=== PATIENT | male | born 1980 | race Caucasian/White ===

== ENCOUNTER 2018-11-14 09:51 | Emergency (ER) | payer OTHER ==
[2018-11-14 09:56] VITALS: PULSE 99; O2SAT 100
[2018-11-14 09:57] VITALS: BMI 22.1
--- NOTE | 2018-11-14 10:29 | ED PDOC ---
HPI: General Adult Time Seen by Provider: 11/14/18 09:57 Chief Complaint (Nursing): Allergic Reaction Chief Complaint (Provider): Allergic Reaction History Per: Patient History/Exam Limitations: no limitations Onset/Duration Of Symptoms: Days (2) Additional Complaint(s): 38 y/o male presents to the ED complaining of a rash that started 2 days ago. Patient states the rash is itchy red spots and its through his whole body. 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 He states he has not taken any medication for it. Patient denies fever, cough, shortness of breath, vomiting, swelling, food exposure, bad products, recent travels, or any sick contacts. PMD: none provided Past Medical History Reviewed: Historical Data, Nursing Documentation, Vital Signs Vital Signs: Last Vital Signs Temp 99.5 F 11/14/18 09:55 Pulse 99 H 11/14/18 09:55 Resp 17 11/14/18 09:55 BP 147/78 11/14/18 09:55 Pulse Ox 100 11/14/18 09:55 - Medical History PMH: No Chronic Diseases - Surgical History Surgical History: No Surg Hx - Family History Family History: States: No Known Family Hx - Immunization History Hx Tetanus Toxoid Vaccination: No Hx Influenza Vaccination: No Hx Pneumococcal Vaccination: No - Home Medications Home Medications: Ambulatory Orders Medication Instructions Recorded Hydroxyzine HCl 10 mg PO TID #15 tablet 11/14/18 Prednisone 50 mg PO DAILY #3 tablet 11/14/18 - Allergies Allergies/Adverse Reactions: Allergies Allergy/AdvReac Type Severity Reaction Status Date / Time No Known Allergies Allergy Unverified 05/20/13 01:05 Review of Systems ROS Statement: Except As Marked, All Systems Reviewed And Found Negative Constitutional: Negative for: Fever, Sweats Respiratory: Negative for: Cough, Shortness of Breath Gastrointestinal: Negative for: Vomiting Skin: Positive for: Rash Physical Exam - Reviewed Nursing Documentation Reviewed: Yes Vital Signs Reviewed: Yes - Physical Exam Appears: Positive for: Well, Non-toxic, No Acute Distress Head Exam: Positive for: ATRAUMATIC, NORMOCEPHALIC Skin: Positive for: Normal Color, Warm, Dry, Rash (Disfused rash on arm, leg, and limited on face. Red macular, confluent, seperated, and slightly rasied. No pass chills, no vesicles. ) Eye Exam: Positive for: EOMI, Normal appearance, PERRL ENT: Positive for: Normal ENT Inspection Neck: Positive for: Normal, Painless ROM, Supple Cardiovascular/Chest: Positive for: Regular Rate, Rhythm. Negative for: Murmur Respiratory: Positive for: Normal Breath Sounds. Negative for: Wheezing Gastrointestinal/Abdominal: Positive for: Normal Exam, Soft. Negative for: Tenderness Back: Positive for: Normal Inspection. Negative for: L CVA Tenderness, R CVA Tenderness Extremity: Positive for: Normal ROM Neurological/Psych: Positive for: Awake, Alert, Normal Tone, Oriented (x3). Negative for: Motor/Sensory Deficits - Laboratory Results Result Diagrams: 11/14/18 10:24 - ECG O2 Sat by Pulse Oximetry: 100 - Progress Re-evaluation Time: 11:50 Condition: Re-examined, Improved Medical Decision Making Medical Decision Making: Time:1018 Initial Impression: Rash. Diff include urticaria. Rule out syphilis, Bacterial skin infection, and HIV test. Initial Plan: -CBC -ESR -Benadryl 50mg PO -Pepcid 20mg PO -Prednisone 60mg PO -HIV rapid -RPR Reassess Scribe Attestation: Documented by Ame Eubanks, acting as a scribe for Jennifer Lane Provider Scribe Attestation: All medical record entries made by the Scribe were at my direction and personally dictated by me. I have reviewed the chart and agree that the record accurately reflects my personal performance of the history, physical exam, medical decision making, and the department course for this patient. I have also personally directed, reviewed, and agree with the discharge instructions and disposition. Disposition - Clinical Impression Clinical Impression: Allergic reaction - Patient ED Disposition Is Patient to be Admitted: No Doctor Will See Patient In The: Office Counseled Patient/Family Regarding: Studies Performed, Diagnosis, Need For Followup - Disposition Referrals: [facility] [Outside] Disposition: Routine/Home Disposition Time: 11:53 Condition: GOOD Additional Instructions: LEV LOWERY, thank you for letting us take care of you today. Your provider was Jennifer Lane MD and you were treated for BODY RASH, WEAKNESS. The emergency medical care you received today was directed at your acute symptoms. If you were prescribed any medication, please fill it and take a s directed. It may take several days for your symptoms to resolve. Return to the Emergency Department if your symptoms worsen, do not improve, or if you have any other problems. Please contact your doctor or call one of the physicians/clinics you have been referred to that are listed on the Patient Visit Information form that is included in your discharge packet. Bring any paperwork you were given at discharge with you along with any medications you are taking to your follow up visit. Our treatment cannot replace ongoing medical care by a primary care provider outside of the emergency department. Thank you for allowing the [facility] team to be part of your care today. If you had an X-Ray or CT scan: A Radiologist will review the ED reading if any change in treatment is needed we will contact you. If you had a blood, urine, or wound culture: It will take several days for the results, if any change in treatment is needed we will contact you. Prescriptions: Hydroxyzine HCl 10 mg PO TID #15 tablet Prednisone 50 mg PO DAILY #3 tablet Instructions: Hives Forms: [employer] (Faroese) Print Language: BULGARIAN
[2018-11-14 10:32] LABS: BASO % 0.2 % (0.0-2.0); EOS # 0.1 K/uL (0.0-0.7); EOS % 0.9 % (0.0-4.0); HEMOGLOBIN 12.7 g/dL (12.0-18.0); LYMPH # 0.9 K/uL (1.0-4.3); LYMPH % 11.7 % (20.0-40.0); MEAN CELL VOLUME 100.2 fl (80.0-94.0); MEAN CORPUSCULAR HGB CONC 33.9 g/dL (33.0-37.0); MEAN PLATELET VOLUME 7.5 fl (7.2-11.7); MONO # 0.4 K/uL (0.0-0.8); MONO % 4.9 % (0.0-10.0); NEUT % 82.3 % (50.0-75.0); NRBC % 0.1 % (0.0-0.0); RBC 3.73 Mil/uL (4.40-5.90); RED CELL DISTRIBUTION WIDTH 23.4 % (11.5-14.5); WHITE BLOOD COUNT 7.3 K/uL (4.8-10.8)
[2018-11-14 12:08] VITALS: BP 140/80; RESP 18; TEMP 98.6
== END 2018-11-14 12:06 | disposition home or self-care (01) ==
LOC: H.ER 09:51
DX: T78.40XA Allergy, unspecified, initial encounter (principal)

== ENCOUNTER 2018-11-18 12:33 | Emergency (ER) | payer OTHER ==
[2018-11-18 12:33] VITALS: BMI 22.1
[2018-11-18 12:41] VITALS: RESP 18; TEMP 98.2; O2SAT 100
[2018-11-18] MEDS ORDERED: Famotidine 20mg/50ml Premix IVPB STA (13:08)
[2018-11-18] MEDS ORDERED: Sodium Chloride 0.9% 1,000 ML IV STA (13:09)
[2018-11-18 13:45] LABS: BASO % 0.1 % (0.0-2.0); EOS # 0.1 K/uL (0.0-0.7); EOS % 1.4 % (0.0-4.0); HEMOGLOBIN 11.9 g/dL (12.0-18.0); LYMPH # 0.9 K/uL (1.0-4.3); MEAN CELL VOLUME 100.9 fl (80.0-94.0); MEAN CORPUSCULAR HEMOGLOBIN 33.3 pg (27.0-31.0); MEAN PLATELET VOLUME 7.4 fl (7.2-11.7); MONO # 0.1 K/uL (0.0-0.8); MONO % 1.3 % (0.0-10.0); NEUT % 86.2 % (50.0-75.0); NRBC % 0.1 % (0.0-0.0); RBC 3.57 Mil/uL (4.40-5.90); RED CELL DISTRIBUTION WIDTH 23.2 % (11.5-14.5); WHITE BLOOD COUNT 8.1 K/uL (4.8-10.8)
[2018-11-18 13:56] LABS: ALB/GLOB RATIO 1.3 (1.0-2.1); ALBUMIN 4.1 g/dL (3.5-5.0); ALT/SGPT 32 U/L (21-72); AST/SGOT 24 U/L (17-59); BLOOD UREA NITROGEN 23 mg/dl (9-20); CALCIUM 8.8 mg/dL (8.4-10.2); GFR NON-AFRICAN AMERICAN > 60
--- NOTE | 2018-11-18 14:06 | ED PDOC ---
HPI: Skin/Bite Injury Time Seen by Provider: 11/18/18 12:43 Chief Complaint (Nursing): Abnormal Skin Integrity Chief Complaint (Provider): rash History Per: Patient History/Exam Limitations: no limitations Onset/Duration Of Symptoms: Days Current Symptoms Are (Timing): Still Present Quality Of Symptoms: Itching Severity: Moderate Additional History Per: Patient Additional Complaint(s): 38 y/o male with no medical history presents with rash that started over one week ago. Patient states he was seen in ED for same on 11/14/2018 and rash started 2 days prior. He states he took prednisone and anti-itchy medication at 10am today with no improvement. Patient reports he was given prednisone for 3 days. He missed one dose of prednisone yesterday. He states rash had improved but yesterday it worsened and today the rash progressed which prompted ED visit. Patient states yesterday feeling warm but did not take temperature. Patient denies exposure to new chemicals, detergents, lotins, soaps, sick contacts, travel or foreign substances, recent viral illness, antibiotics use. Additionally denies sob, chest pain, difficulty swallowing. Past Medical History Reviewed: Historical Data, Nursing Documentation, Vital Signs Vital Signs: Last Vital Signs Temp 98.2 F 11/18/18 12:39 Pulse 97 H 11/18/18 12:39 Resp 18 11/18/18 12:39 BP 133/64 11/18/18 12:39 Pulse Ox 100 11/18/18 12:39 Primary Care Provider: FAMILY PROVIDER,NO - Medical History PMH: No Chronic Diseases - Family History Family History: States: Unknown Family Hx - Living Arrangements Living Arrangements: With Family - Immunization History Hx Tetanus Toxoid Vaccination: No Hx Influenza Vaccination: No Hx Pneumococcal Vaccination: No - Home Medications Home Medications: Ambulatory Orders Medication Instructions Recorded Hydroxyzine HCl 10 mg PO TID #15 tablet 11/14/18 Prednisone 50 mg PO DAILY #3 tablet 11/14/18 Famotidine [Pepcid] 20 mg PO DAILY #4 tab 11/18/18 Methylprednisolone [Medrol Dose 4 mg PO DAILY #1 packet 11/18/18 Pack (21 tabs)] - Allergies Allergies/Adverse Reactions: Allergies Allergy/AdvReac Type Severity Reaction Status Date / Time No Known Allergies Allergy Unverified 05/20/13 01:05 Review of Systems ROS Statement: Except As Marked, All Systems Reviewed And Found Negative Constitutional: Positive for: Chills. Negative for: Fever, Sweats, Weakness, Malaise Respiratory: Negative for: Cough, Shortness of Breath, SOB with Exertion, Wheezing Gastrointestinal: Negative for: Nausea, Vomiting, Abdominal Pain, Diarrhea Musculoskeletal: Negative for: Neck Pain, Shoulder Pain, Arm Pain, Hand Pain, Leg Pain, Foot Pain Skin: Positive for: Rash (started to the face and progressed throughout body.) Neurological: Negative for: Weakness, Dizziness Physical Exam - Reviewed Nursing Documentation Reviewed: Yes Vital Signs Reviewed: Yes - Physical Exam Appears: Positive for: Well, Non-toxic, No Acute Distress Head Exam: Positive for: ATRAUMATIC, NORMAL INSPECTION, NORMOCEPHALIC Skin: Positive for: Normal Color, Warm, Rash (welts noted, erythematous/pruiritic rash to forehead, scalp neck , chest, back and extremeties. Non-painful. ) Eye Exam: Positive for: EOMI, Normal appearance, PERRL ENT: Positive for: Normal ENT Inspection, Pharynx Is (normal exam. neg for lesion, erythema), TM Is/Are (intact). Negative for: Nasal Congestion, Pharyngeal Erythema, Tonsillar Exudate, Tonsillar Swelling Neck: Positive for: Normal, Painless ROM Cardiovascular/Chest: Positive for: Regular Rate, Rhythm Respiratory: Positive for: CNT, Normal Breath Sounds Gastrointestinal/Abdominal: Positive for: Normal Exam, Soft. Negative for: T enderness, Distended Back: Positive for: Normal Inspection Extremity: Positive for: Normal ROM, Other (neg for rash lesion to palms or plantar of the foot). Negative for: Tenderness, Calf Tenderness, Deformity Neurological/Psych: Positive for: Awake, Alert, Normal Tone, Oriented - Laboratory Results Result Diagrams: 11/18/18 13:30 11/18/18 13:30 Lab Results: Total Bilirubin 0.7 mg/dl (0.2-1.3) 11/18/18 13:30 AST 24 U/L (17-59) 11/18/18 13:30 ALT 32 U/L (21-72) 11/18/18 13:30 Alkaline Phosphatase 55 U/L (38-126) 11/18/18 13:30 Total Protein 7.3 G/DL (6.3-8.2) 11/18/18 13:30 Albumin 4.1 g/dL (3.5-5.0) 11/18/18 13:30 Globulin 3.2 gm/dL (2.2-3.9) 11/18/18 13:30 Albumin/Globulin Ratio 1.3 (1.0-2.1) 11/18/18 13:30 - ECG O2 Sat by Pulse Oximetry: 100 - Critical Care Total Time (In Min): 30 Comments: Patient given solumedrol iv for allergic reaction. Medical Decision Making Medical Decision Making: --CBC --CMP --ESR --0.9 NS 1L --SOLUMEDROL 125MG --PEPCID 20MG --REASSESS --LABS REVIEWED FROM 11/14. NO SIGNIFICANT CHANGE TO CBC. LFT'S ARE NORMAL, HIV AND RPR NON-RECATIVE FROM 11/14. PENDING ESR 14:20 Patient states itchiness has improved. redness has decreased. ivf continue to infuse. will continue to monitor. 15:45 Labs reviewed by me. ESR 32 compared to 39 on 11/14/2018, shows improvement. Patient states he feels better, rash has improved as well as itchiness. No further work up needed in ED. Impression Uticaria. Rx given for Medrol dose willian, pepcid. Patient may continue to take hydroxyzine as needed for itchiness. Referral to Dermatology given for possible allergy testing if allergic reaction persist. Patient states understanding and agrees with plan. Disposition - Clinical Impression Clinical Impression: Acute urticaria - Patient ED Disposition Is Patient to be Admitted: No Counseled Patient/Family Regarding: Diagnosis - Disposition Referrals: Mushtaq Buchanan [Medical Doctor] - Disposition: Routine/Home Disposition Time: 15:45 Condition: IMPROVED Prescriptions: Famotidine [Pepcid] 20 mg PO DAILY #4 tab Methylprednisolone [Medrol Dose Pack (21 tabs)] 4 mg PO DAILY #1 packet Instructions: Diane (JEFF), Allergy Skin Testing Forms: [employer] (Sudanese) Print Language: GAMBIAN - POA Present On Arrival: None
[2018-11-18 15:59] VITALS: BP 108/65; PULSE 74
== END 2018-11-18 15:59 | disposition home or self-care (01) ==
LOC: H.ER 12:33
DX: L50.9 Urticaria, unspecified (principal)
CPT/HCPCS: 80053; 85025; 85651; 96374; 96375; 99284; J2930; J7030